=== PATIENT | female | born 1970 | race Two or more races ===

== ENCOUNTER 2017-08-23 07:46 | Emergency (ER) | payer MEDICAID, OTHER ==
[~2017-08-23] VITALS: Ht 170.2 cm; Wt 92.5 kg
[2017-08-23 08:45] LABS: Urine Bilirubin Negative (Negative); Urine Blood Negative /uL (Negative); Urine Color Yellow (Yellow); Urine Glucose Normal (Normal); Urine Ketone Negative (Negative); Urine Nitrite Negative (Negative); Urine RBC <1 /hpf (0 - 4); Urine Squamous Epithelial Cell FEW /hpf (<5); Urine Urobilinogen Normal (Negative); Urine pH 6.5 (5.0-8.0)
[2017-08-23 08:46] LABS: Basophils # (auto) 0 uL; Basophils % (auto) 0.5 % (0.0-2.0); Eosinophils # (auto) 0.2 uL; Hematocrit 44.9 % (36.0-46.0); Hemoglobin 15.4 g/dL (12.2-16.2); Lymphocytes # (auto) 1.7 uL; Lymphocytes % (auto) 38.5 % (10.0-50.0); Mean Corpuscular Hemoglobin 31.5 pg (28.0-32.0); Mean Corpuscular Hgb Conc. 34.3 g/dL (32.0-36.0); Mean Corpuscular Volume 91.6 fL (80.0-100.0); Mean Platelet Volume 9.3 fL (6.9-10.8); Monocytes # (auto) 0.4 uL; Monocytes % (auto) 8.9 % (0.0-12.0); Neutrophils # (auto) 2.1 uL; Neutrophils % (auto) 48.1 % (37.0-80.0); Nucleated Red Blood Cells % 0.2 %; Platelet Count (auto) 209 10^3/uL (140-450); Red Cell Distribution Width 13.1 % (11.8-14.3); White Blood Cell 4.3 10^3/uL (4.4-10.8)
[2017-08-23 09:11] LABS: BUN/Creatinine Ratio 20.6; Bilirubin, Total 0.4 mg/dL (0.2-1.0); Calcium 8.8 mg/dL (8.5-10.1); Total Protein 7.8 g/dL (6.4-8.2)
[2017-08-23 09:59] VITALS: BP 115/64
[2017-08-23] MEDS: KETOROLAC TROMETH 30 MG/ML 1ML VIAL IV ONE (12:10)
[2017-08-23] MEDS: METOCLOPRAMIDE HCL 5MG/ml INJ 2ml VIAL IV ONE (12:10)
[2017-08-23] MEDS: SODIUM CHLORIDE 0.9% 1,000 ML IV ONE (12:10)
== END 2017-08-23 12:42 | disposition home or self-care (01) ==
LOC: ER 07:46
DX: R07.89 Other chest pain (principal); N39.0 Urinary tract infection, site not specified; Z88.0 Allergy status to penicillin; Z30.2 Encounter for sterilization
CPT/HCPCS: 36415; 71020; 80053; 81001; 85025; 93005; 96374; 96375; 99285; J1885; J2765; J7030

== ENCOUNTER 2017-10-13 08:20 | Emergency (ER) | payer MEDICAID ==
[~2017-10-13] VITALS: Ht 170.2 cm; Wt 93.9 kg
[2017-10-13 10:12] VITALS: BP 121/71
== END 2017-10-13 10:44 | disposition home or self-care (01) ==
LOC: ER 08:20
DX: J45.909 Unspecified asthma, uncomplicated (principal)
CPT/HCPCS: 71046

== ENCOUNTER 2018-06-18 09:34 | Emergency (ER) | payer MEDICAID, OTHER ==
[~2018-06-18] VITALS: Ht 170.2 cm; Wt 87.5 kg
[2018-06-18 09:41] VITALS: BP 119/44
== END 2018-06-18 10:21 | disposition home or self-care (01) ==
LOC: ER 09:34
DX: R51 Headache (principal); J45.909 Unspecified asthma, uncomplicated; M19.90 Unspecified osteoarthritis, unspecified site; Z98.51 Tubal ligation status

== ENCOUNTER 2019-05-01 13:49 | Emergency (ER) | payer MEDICAID ==
[~2019-05-01] VITALS: Ht 170.2 cm; Wt 90.7 kg
[2019-05-01 14:30] VITALS: BP 123/58
[2019-05-01] MEDS ORDERED: KETOROLAC TROMETH 60MG/2ML VIAL IM ONE (15:30)
== END 2019-05-01 15:55 | disposition home or self-care (01) ==
LOC: ER 13:49
DX: S16.1XXA Strain of muscle, fascia and tendon at neck level, initial encounter (principal); S46.912A Strain of unspecified muscle, fascia and tendon at shoulder and upper arm level, left arm, initial encounter; J45.909 Unspecified asthma, uncomplicated; F17.210 Nicotine dependence, cigarettes, uncomplicated; Z88.0 Allergy status to penicillin; X50.1XXA Overexertion from prolonged static or awkward postures, initial encounter; Y93.89 Activity, other specified; Y92.89 Other specified places as the place of occurrence of the external cause; Y99.8 Other external cause status
CPT/HCPCS: 96372; 99283; J1885

== ENCOUNTER 2019-07-22 09:51 | Emergency (ER) | payer MEDICAID ==
[~2019-07-22] VITALS: Ht 170.2 cm; Wt 93.0 kg
[2019-07-22 10:47] LABS: Urine Bacteria NONE SEEN /hpf (None Seen); Urine Blood Negative /uL (Negative); Urine Mucus FEW (None Seen); Urine Specific Gravity 1.025 (1.001-1.035); Urine WBC 8 /hpf (0 - 5)
[2019-07-22 11:04] LABS: Basophils # (auto) 0 uL; Basophils % (auto) 0.9 % (0.0-2.0); Eosinophils # (auto) 0.1 uL; Eosinophils % (auto) 3.5 % (0.0-7.0); Hematocrit 45.2 % (36.0-46.0); Hemoglobin 15.3 g/dL (12.2-16.2); Lymphocytes # (auto) 1.4 uL; Lymphocytes % (auto) 36.5 % (10.0-50.0); Mean Corpuscular Hemoglobin 31.6 pg (28.0-32.0); Mean Corpuscular Hgb Conc. 33.9 g/dL (32.0-36.0); Mean Corpuscular Volume 93.5 fL (80.0-100.0); Monocytes # (auto) 0.4 uL; Monocytes % (auto) 10.5 % (0.0-12.0); Neutrophils # (auto) 1.9 uL; Neutrophils % (auto) 48.6 % (37.0-80.0); Nucleated Red Blood Cells % 0.2 %; Platelet Count (auto) 197 10^3/uL (140-450); Red Blood Cells 4.83 10^6/uL (4.0-5.20); Red Cell Distribution Width 13.5 % (11.8-14.3); White Blood Cell 3.9 10^3/uL (4.4-10.8)
[2019-07-22 11:13] LABS: Albumin 3.9 g/dL (3.4-5.0); Calcium 8.6 mg/dL (8.5-10.1); Potassium 3.9 mmol/L (3.5-5.1)
[2019-07-22 11:19] LABS: BUN/Creatinine Ratio 30.9; Bilirubin, Total 0.5 mg/dL (0.2-1.0); Total Protein 7.5 g/dL (6.4-8.2)
[2019-07-22] MEDS ORDERED: SODIUM CHLORIDE 0.9% 1,000 ML IV ONE (11:45)
[2019-07-22] MEDS ORDERED: MORPHINE SULFATE 4 MG/ML SYR/VIAL IV ONE (11:45)
[2019-07-22] MEDS ORDERED: ONDANSETRON HCL 4 MG/2 ML VIAL IV ONE (11:45)
[2019-07-22 13:46] VITALS: BP 105/47
[2019-07-22] MEDS ORDERED: LEVOFLOXACIN 500 MG TAB PO ONE (14:15)
== END 2019-07-22 14:28 | disposition home or self-care (01) ==
LOC: ER 09:54
DX: N20.0 Calculus of kidney (principal); N39.0 Urinary tract infection, site not specified; M79.10 Myalgia, unspecified site; M54.9 Dorsalgia, unspecified; J45.909 Unspecified asthma, uncomplicated; F17.210 Nicotine dependence, cigarettes, uncomplicated; Z88.0 Allergy status to penicillin
CPT/HCPCS: 36415; 74176; 80053; 81001; 85025; 93005; 96374; 96375; 99284; J2270; J2405

== ENCOUNTER 2019-10-12 11:25 | Emergency (ER) | payer MEDICAID ==
[~2019-10-12] VITALS: Ht 170.2 cm; Wt 90.7 kg
[2019-10-12 11:40] VITALS: BP 102/64
== END 2019-10-12 13:16 | disposition home or self-care (01) ==
LOC: ER 11:25
DX: T78.40XA Allergy, unspecified, initial encounter (principal); L30.9 Dermatitis, unspecified; M19.90 Unspecified osteoarthritis, unspecified site; J45.909 Unspecified asthma, uncomplicated; Z88.0 Allergy status to penicillin; X58.XXXA Exposure to other specified factors, initial encounter

== ENCOUNTER 2020-07-30 19:09 | Emergency (ER) | payer MEDICAID ==
[~2020-07-30] VITALS: Ht 170.2 cm; Wt 103.9 kg
[2020-07-30] MEDS ORDERED: ASPirin 81 mg TAB PO ONE (19:30)
[2020-07-30 19:31] VITALS: BP 137/98
[2020-07-30 20:45] LABS: Basophils # (auto) 0 10 ^3/uL (0-0.2); Basophils % (auto) 0.5 % (0.0-2.0); Eosinophils # (auto) 0 10 ^3/uL (0-0.8); Hematocrit 43.7 % (36.0-46.0); Hemoglobin 14.9 g/dL (12.2-16.2); Lymphocytes # (auto) 1.1 10 ^3/uL (0.4-5.4); Lymphocytes % (auto) 22.6 % (10.0-50.0); Mean Corpuscular Hemoglobin 31.5 pg (28.0-32.0); Mean Corpuscular Hgb Conc. 34.1 g/dL (32.0-36.0); Mean Corpuscular Volume 92.4 fL (80.0-100.0); Monocytes # (auto) 0.2 10 ^3/uL (0-1.3); Monocytes % (auto) 4.8 % (0.0-12.0); Neutrophils # (auto) 3.6 10 ^3/uL (1.6-8.6); Neutrophils % (auto) 72.1 % (37.0-80.0); Nucleated Red Blood Cells % 0.1 %; Platelet Count (auto) 235 10^3/uL (140-450); Red Blood Cells 4.73 10^6/uL (4.0-5.20); Red Cell Distribution Width 13.4 % (11.8-14.3)
[2020-07-30 20:53] LABS: Alanine Aminotransferase 72 U/L (13-56); Albumin 4.1 g/dL (3.4-5.0); Anion Gap 7 (5-15); Aspartate Aminotransferase 35 U/L (15-37); Blood Urea Nitrogen 14 mg/dL (7-18); Carbon Dioxide 24 mmol/L (21-32); Chloride 107 mmol/L (98-107); GFR African American 113 mL/min; GFR Non-African American 93 mL/min; Glucose 117 mg/dL (74-106); Sodium 138 mmol/L (136-145)
[2020-07-30 20:57] LABS: Alkaline Phosphatase 101 U/L (45-117); Bilirubin, Total 0.3 mg/dL (0.2-1.0); Total Protein 8.2 g/dL (6.4-8.2)
== END 2020-07-30 21:23 | disposition home or self-care (01) ==
LOC: ER 19:22
DX: R07.89 Other chest pain (principal); Z87.891 Personal history of nicotine dependence; Z88.0 Allergy status to penicillin
CPT/HCPCS: 36415; 71046; 80053; 84484; 85025; 85379; 93005

== ENCOUNTER 2020-10-05 06:29 | Emergency (ER) | payer MEDICAID ==
[~2020-10-05] VITALS: Ht 177.8 cm; Wt 99.8 kg
[2020-10-05 06:34] VITALS: BP 140/80
[2020-10-05 07:22] LABS: Basophils # (auto) 0 10 ^3/uL (0-0.2); Basophils % (auto) 0.3 % (0.0-2.0); Eosinophils # (auto) 0.1 10 ^3/uL (0-0.8); Eosinophils % (auto) 1.6 % (0.0-7.0); Hematocrit 45.1 % (36.0-46.0); Lymphocytes # (auto) 1.7 10 ^3/uL (0.4-5.4); Lymphocytes % (auto) 33.7 % (10.0-50.0); Mean Corpuscular Hemoglobin 30.7 pg (28.0-32.0); Mean Corpuscular Hgb Conc. 33.3 g/dL (32.0-36.0); Mean Corpuscular Volume 91.9 fL (80.0-100.0); Monocytes # (auto) 0.4 10 ^3/uL (0-1.3); Monocytes % (auto) 7.8 % (0.0-12.0); Neutrophils # (auto) 2.9 10 ^3/uL (1.6-8.6); Neutrophils % (auto) 56.6 % (37.0-80.0); Nucleated Red Blood Cells % 0.1 %; Red Blood Cells 4.91 10^6/uL (4.0-5.20); Red Cell Distribution Width 13.8 % (11.8-14.3); White Blood Cell 5.2 10^3/uL (4.4-10.8)
[2020-10-05 07:33] LABS: Albumin 4.4 g/dL (3.4-5.0); Amylase 32 U/L (25-115); Anion Gap 9 (5-15); BUN/Creatinine Ratio 17.6; Blood Urea Nitrogen 12 mg/dL (7-18); Carbon Dioxide 23 mmol/L (21-32); Chloride 107 mmol/L (98-107); GFR African American 117 mL/min; GFR Non-African American 97 mL/min; Glucose 116 mg/dL (74-106); Lipase 168 U/L (73-393); Potassium 3.8 mmol/L (3.5-5.1); Sodium 139 mmol/L (136-145)
[2020-10-05 07:38] LABS: Alanine Aminotransferase 59 U/L (13-56); Alkaline Phosphatase 84 U/L (45-117); Aspartate Aminotransferase 33 U/L (15-37); Bilirubin, Total 0.6 mg/dL (0.2-1.0)
[2020-10-05 07:49] LABS: INR 0.98 (0.9-1.15); Partial Thromboplastin Time 24.8 sec (23.0-31.2)
[2020-10-05] MEDS ORDERED: SODIUM CHLORIDE 0.9% 1,000 ML IV ONE (08:00)
[2020-10-05 10:09] LABS: Urine Bacteria NONE SEEN /hpf (None Seen); Urine Blood Negative /uL (Negative); Urine Specific Gravity 1.024 (1.001-1.035); Urine WBC 3 /hpf (0 - 5)
== END 2020-10-05 13:50 | disposition home or self-care (01) ==
LOC: EDBD 06:29 → ER 06:29
DX: R10.31 Right lower quadrant pain (principal); J45.909 Unspecified asthma, uncomplicated; Z88.0 Allergy status to penicillin; Z98.890 Other specified postprocedural states
CPT/HCPCS: 36415; 71045; 74176; 80053; 81001; 82150; 83690; 83735; 84484; 84702; 85025; 85610; 85730; 93005; 96360; 99285; J7030

== ENCOUNTER 2023-10-01 04:53 | Emergency (ER) | payer MEDICAID ==
[~2023-10-01] VITALS: Ht 170.2 cm; Wt 100.0 kg
[2023-10-01 05:05] VITALS: BP 121/51; PULSE 68; RESP 18; TEMP 97.6; O2SAT 93
[2023-10-01] MEDS ORDERED: HYDR-4902 PO (05:26)
[2023-10-01] MEDS ORDERED: GABA600T PO (05:26)
[2023-10-01] MEDS ORDERED: DexAMETHasone SOD PHOS 10MG/1ML VIAL INJ IM ONE (05:30)
[2023-10-01] MEDS ORDERED: MORPHINE SULFATE INJ 2 MG/ml SYRG IM ONE (05:30)
[2023-10-01] MEDS ORDERED: KETOROLAC TROMETH 60MG/2ML VIAL IM ONE (05:45)
[2023-10-01] MEDS ORDERED: PERCOT PO (18:40)
== END 2023-10-01 05:51 | disposition home or self-care (01) ==
LOC: ER 04:53
DX: M51.36 Other intervertebral disc degeneration, lumbar region (principal); I10 Essential (primary) hypertension; M62.838 Other muscle spasm; J45.909 Unspecified asthma, uncomplicated; Z98.51 Tubal ligation status; Z88.0 Allergy status to penicillin; Z87.891 Personal history of nicotine dependence
CPT/HCPCS: 96372; 99284; J1100; J1885

== ENCOUNTER 2025-04-04 06:49 | Inpatient (IN) | payer MEDICAID ==
[~2025-04-04] VITALS: Ht 160 cm; Wt 95.0 kg
[~2025-04-04 06:49] MED LIST: GABA600T PO; PERCOT PO
--- NOTE | 2025-04-04 07:31 | ED.PDOC ---
History of Present Illness HPI Comments Patient is a 55-year-old female with a medical history of hypothyroidism, anxiety, depression, obesity presented to the ED with a chief complaint intractable nausea vomiting with the past 3 days. Patient reported 3 days ago she started to have chills, intractable nausea and vomiting without being able to keep anything down, diarrhea 5 to 6 times a day greenish in color without any blood in stool or vomitus. Patient denied recent sick contacts, recent travel. Patient started to use Zepbound in January and about a week ago increased her dose from 2.5 to 5. Chief Complaint: Intractable nausea/vomiting/diarrhea Time Seen by MD: 06:52 Primary Care Provider: LESLEY Reviewed Notes: Nurses Notes, Medications, Allergies Allergies: Coded Allergies: Penicillins (Verified Allergy, Unknown, 07/22/19) Home Meds Active Scripts Oxycodone W/ Acetaminophen (Percocet 5/325MG) 1 Tab Tb, 1 TAB PO Q6HPRN PRN, #6 TAB NEEDED FOR SEVERE PAIN Prov:GAMEZ,NORALDA Q UPSET OPERATOR 10/01/23 Gabapentin (Neurontin) 600 Mg Tab, 1 TAB PO BID for 10 Days, #20 TAB 3 Refills Prov:GAMEZ,NORALDA Q UPSET OPERATOR 10/01/23 Information Source: Patient Past Medical History PAST MEDICAL HISTORY: Anxiety, Arthritis, Asthma, Depression, Thyroid (Hypothyroidism) Surgical History: BTL MAIL SORTING SUPERVISOR History: No Pertinent MAIL SORTING SUPERVISOR History Family History Family History: Unobtainable Social History Smoker: Non-Smoker, Quit Less Than 1 Year Alcohol: Other Drugs: Denies Drug Use Lives In: Home Constitutional: reports: chills, fatigue, malaise, weakness EENTM: denies: blurred vision, double vision, ear bleeding, ear discharge, ear drainage, ear pain, ear ringing, eye pain, eye redness, hearing loss, mouth pain, mouth swelling, nasal discharge, nose bleeding, nose congestion, nose pain, photophobia, tearing, throat pain, throat swelling, voice changes, others Respiratory: denies: cough, hemoptysis, orthopnea, SOB at rest, shortness of breath, SOB with excertion, stridor, wheezing, others Cardiovascular: denies: chest pain, dizzy spells, diaphoresis, Dyspnea on exertion, edema, irregular heart beat, left arm pain, lightheadedness, palpitations, PND, syncope, others Gastrointestinal: reports: abdominal pain, diarrhea, nausea, poor appetite, vomiting Genitourinary: denies: abnormal vagina bleeding, burning, dyspareunia, dysuria, flank pain, frequency, hematuria, incontinence, pain, , vagina discharge, urgency, others Neurological: denies: dizziness, fainting, headache, left sided numbness, left sided weakness, numbness, paresthesia, pre-existing deficit, right sided numbness, right sided weakness, seizure, speech problems, tingling, tremors, weakness, others Musculoskeletal: denies: back pain, gout, joint pain, joint swelling, muscle pain, muscle stiffness, neck pain, others Integumetry: denies: bruises, change in color, change in hair/nails, dryness, laceration, lesions, lumps, rash, wounds, others Allergic/Immunocompromised: denies: Difficulty Healing, Frequent Infections, Hives, Itching, others Hematologic/Lymphatic: denies: anemia, blood clots, easy bleeding, easy bruising, swollen glands, others Endocrine: denies: excessive hunger, excessive sweating, excessive thirst, excessive urination, flushing, intolerance to cold, intolerance to heat, unexplained weight gain, unexplained weight loss, others Psychiatric: denies: anxiety, bipolar disorder, depression, hopeless, panic disorder, schizophrenia, sleepless, suicidal, others Physical Exam General Appearance: Moderate Distress, Obese HEENT: PERRL/EOMI, Pharynx Normal Neck: Full Range of Motion, Non-Tender, Normal Inspection Respiratory: No Accessory Muscle Use, No Respiratory Distress, Normal Breath Sounds Cardiovascular: No Edema, No JVD, No Murmur, Tachycardia Breast Exam: Deferred Gastrointestinal: Diffuse (Abdominal pain), LLQ, No Organomegaly, Normal Bowel Sounds, Tenderness Genitalia: Deferred Pelvic: Deferred Rectal: Deferred Extremities: No calf tenderness, Normal inspection, Normal range of motion, No pedal edema Neurologic: Alert, potato seed cutter II-XII nml as Tested, No Motor Deficits, No Sensory Deficits Cerebellar Function: Normal Reflexes: NOT DONE Skin: Dry, Normal Color, Warm Peripheral Pulses: 2+ dorsalis pedis (R), 2+ dorsalis pedis (L), 2+ Radial (R), 2+ Radial (L) Lymphatic: None Was a procedure done? Was a procedure done?: No Differential Dx Considerations may include: Gastroenteritis, colitis, diverticulitis, food poisoning, gastritis, UTI X-Ray, Labs, Meds, VS Vital Signs Date Time Temp Pulse Resp B/P (MAP) Pulse Ox O2 Delivery O2 Flow Rate FiO2 04/04/25 09:30 97.7 115 16 101/51 (68) 96 97.7 04/04/25 07:42 97.6 128 18 105/69 (81) 96 97.6 04/04/25 07:42 128 18 96 Room Air 04/04/25 07:13 97.8 136 18 99/76 (84) 96 97.8 Lab Test 04/04/25 07:21 Range/Units White Blood Count 6.6 4.4-10.8 10^3/uL Red Blood Count 6.19 H 4.0-5.20 10^6/uL Hemoglobin 19.3 H 12.2-16.2 g/dL Hematocrit 55.8 H 36.0-46.0 % Mean Corpuscular Volume 90.1 80.0-100.0 fL Mean Corpuscular Hemoglobin 31.1 28.0-32.0 pg Mean Corpuscular Hemoglobin Concent 34.5 32.0-36.0 g/dL Red Cell Distribution Width 13.5 11.8-14.3 % Platelet Count 245 140-450 10^3/uL Mean Platelet Volume 9.5 6.9-10.8 fL Neutrophils (%) (Auto) 70.1 37.0-80.0 % Lymphocytes (%) (Auto) 19.9 10.0-50.0 % Monocytes (%) (Auto) 7.8 0.0-12.0 % Eosinophils (%) (Auto) 2.1 0.0-7.0 % Basophils (%) (Auto) 0.1 0.0-2.0 % Neutrophils # (Auto) 4.6 1.6-8.6 10 ^3/uL Lymphocytes # (Auto) 1.3 0.4-5.4 10 ^3/uL Monocytes # (Auto) 0.5 0-1.3 10 ^3/uL Eosinophils # (Auto) 0.1 0-0.8 10 ^3/uL Basophils # (Auto) 0 0-0.2 10 ^3/uL Nucleated Red Blood Cells 0.5 % Sodium Level 140 136-145 mmol/L Potassium Level 3.3 L 3.5-5.1 mmol/L Chloride Level 103 98-107 mmol/L Carbon Dioxide Level 22 20-31 mmol/L Anion Gap 15 5-15 Blood Urea Nitrogen 25 H 9-23 mg/dL Creatinine 2.19 H 0.550-1.02 mg/dL Glomerular Filtration Rate Calc 26 >90 mL/min BUN/Creatinine Ratio 11.4 10.0-20.0 Serum Glucose 130 H 74-106 mg/dL Lactic Acid Level 1.5 0.4-2.0 mmol/L Calcium Level 10.9 H 8.7-10.4 mg/dL Total Bilirubin 0.6 0.2-1.0 mg/dL Aspartate Amino Transferase (AST) 35 13-40 U/L Alanine Aminotransferase (ALT) 37 7-40 U/L Alkaline Phosphatase 97 46-116 U/L Total Protein 9.1 H 5.7-8.2 g/dL Albumin 5.8 H 3.2-4.8 g/dL Current Medications Medications (Trade) Dose Ordered Sig/Jaylin Route Start Time Stop Time Status Last Admin Sodium Chloride 1,000 ml @ 1,000 mls/hr Q1H ONCE IV 04/04/25 07:15 04/04/25 08:14 DC 04/04/25 07:57 Sodium Chloride 1,000 ml @ 1,000 mls/hr Q1H ONCE IV 04/04/25 09:45 04/04/25 10:44 04/04/25 09:51 Patient 55-year-old female came to the ER with a intractable nausea vomiting and diarrhea associated with diffuse abdominal pain for the last 3 days. Patient was tachycardic and had a low blood pressure with a SBP less than 100 mmHg. IV fluids were initiated and labs including CBC, CMP, lactic acid, blood cultures were drawn. Patient had elevated serum creatinine, hemoconcentration with elevated hemoglobin and hematocrit, lactic acid levels were within normal limits. Patient continued to be tachycardic and was given more IV fluids and stool cultures, stool for C diff was ordered and patient was given IV antibiotics. CT abdomen pelvis without IV contrast showed gallbladder sludge and no other acute abdominal or pelvic finding. Patient will need further inpatient management as currently she is not able to tolerate p.o. and she agrees with the plan. Time of 1ST Reevaluation: 09:31 Reevaluation 1ST: Improved Patient Education/Counseling: Diagnosis, Treatment Family Education/Counseling: No Family Present SEPSIS Sepsis Screen Physician Orders Urinalysis (04/04/25 07:03) Ct Ab Pel Wo Con-No Oral Or Iv (04/04/25 07:03) Heplock Iv (04/04/25 ) Blood Culture (04/04/25 07:03) Drug Screen (04/04/25 07:03) Sodium Chloride 0.9% (04/04/25 09:45) Stool Wbc (04/04/25 09:42) Clostridium Difficile Toxin (04/04/25 09:42) Stool Bacterial Culture (04/04/25 09:42) Ceftriaxone 1gm/50ml D5w (Rocephin) (04/04/25 09:45) Metronidazole 500mg/100ml (Flagyl 500mg/ (04/04/25 09:45) Potassium Chl Andrey Kcl (04/04/25 10:00) Vital Signs Date Time Temp Pulse Resp B/P (MAP) Pulse Ox O2 Delivery O2 Flow Rate FiO2 04/04/25 09:30 97.7 115 16 101/51 (68) 96 97.7 04/04/25 07:42 97.6 128 18 105/69 (81) 96 97.6 04/04/25 07:42 128 18 96 Room Air 04/04/25 07:13 97.8 136 18 99/76 (84) 96 97.8 Laboratory Tests Test 04/04/25 07:21 Lactic Acid Level 1.5 mmol/L (0.4-2.0) White Blood Count 6.6 10^3/uL (4.4-10.8) Medications Medications Dose Ordered Sig/Jaylin Route Start Time Stop Time Status Last Admin Dose Admin Sodium Chloride 1,000 ml @ 1,000 mls/hr Q1H ONCE IV 04/04/25 07:15 04/04/25 08:14 DC 04/04/25 07:57 Sodium Chloride 1,000 ml @ 1,000 mls/hr Q1H ONCE IV 04/04/25 09:45 04/04/25 10:44 04/04/25 09:51 Departure 1 Departure Time of Disposition: 10:08 Impression: Primary Impression: Gastroenteritis Additional Impression: Acute kidney injury Disposition: 09 ADMITTED INPATIENT Condition: Stable Critical Care Note Critical Care Time?: No Stability Stability form required: No Heart Score Heart Score: Heart Score Response (Comments) Value History N/A 0 EKG N/A 0 Age N/A 0 Risk Factors N/A 0 Troponin N/A 0 Total 0 BRIANA NEWBERRY RESIDENT Apr 04, 2025 07:31
[2025-04-04 07:56] LABS: Hematocrit 55.8 % (36.0-46.0); Hemoglobin 19.3 g/dL (12.2-16.2); Mean Corpuscular Hemoglobin 31.1 pg (28.0-32.0); Mean Corpuscular Volume 90.1 fL (80.0-100.0); Nucleated Red Blood Cells % 0.5 %
[2025-04-04] MEDS: SODIUM CHLORIDE 0.9% 1,000 ML IV ONE ×3 (07:57→11:57)
--- NOTE | 2025-04-04 08:03 | DVH ---
Exam: CT CT AB PEL WO CON-NO ORAL OR IV History: intractable N/V, abd pain Comparison Study: CT ABD PELVIS WO CONTRAST on DOS: 10/05/20 TECHNIQUE: Multidetector CT of the abdomen was performed from lung bases to pubic symphysis. Imaging was performed without IV contrast. Axial, coronal and sagittal multiplanar reformats were obtained fr om the axial data set by the technologist. Radiation Dose Information: CT Dose: CTDI volume is 23.03 mGy. Dose-length product is 1228.99 mGy*cm FINDINGS: Evaluation of solid organs is limited due to lack of intravenous contrast use. Findings: Lung Bases: No acute or significant lung base finding. Normal heart size. No pleural or pericardial effusion. Liver: Hepatic steatosis Gallbladder and Biliary Tree: Gallbladder sludge. Spleen: Unremarkable Pancreas: The pancreas is grossly normal in appearance. Adrenal Glands: Unremarkable Kidneys: Kidneys are grossly normal without calculi or hydronephrosis. Bladder: Grossly unremarkable for degree of distention. Bowel: The stomach is grossly normal in appearance. Small bowel and colon are normal in caliber and d istribution. Appendix is unremarkable. Ascites: Absent Lymphadenopathy: No mesenteric, retroperitoneal or periportal lymphadenopathy. Abdominal Wall and Mesentery: Unremarkable. Vasculature: The visualized abdominal aorta is normal in size and caliber. Evaluation of abdominal a nd pelvic vessels is limited due to lack of intravenous contrast. Pelvic Organs: Unremarkable Musculoskeletal: No aggressive focal bony lesions, acute fractures or dislocation. Soft tissues: Unremarkable IMPRESSION: No acute abdominal or pelvic finding. Gallbladder sludge. Radiation optimization: All CT scans at this facility use at least one of these dose optimization lula hniques: automated exposure control mA and/or kV adjustment per patient size (includes targeted exam s where dose is matched to clinical indication) or iterative reconstruction.
[2025-04-04 08:10] LABS: Alanine Aminotransferase 37 U/L (7-40); Alkaline Phosphatase 97 U/L (46-116); Anion Gap 15 (5-15); BUN/Creatinine Ratio 11.4 (10.0-20.0); Bilirubin, Total 0.6 mg/dL (0.2-1.0); Carbon Dioxide 22 mmol/L (20-31); Chloride 103 mmol/L (98-107); Sodium 140 mmol/L (136-145)
[2025-04-04 08:11] LABS: Blood Urea Nitrogen 25 mg/dL (9-23); Calcium 10.9 mg/dL (8.7-10.4); Glucose 130 mg/dL (74-106); Potassium 3.3 mmol/L (3.5-5.1); Total Protein 9.1 g/dL (5.7-8.2)
[2025-04-04 08:23] LABS: Albumin 5.8 g/dL (3.2-4.8)
[2025-04-04] MEDS ORDERED: POTASSIUM CHLORIDE 20 MEQ, LIDOCAINE 1% (LOCAL ANESTH.) 2 ML in SODIUM CHL 0.9% 100 ML IV ONE (10:00)
[2025-04-04] MEDS: POTASSIUM EFFERVESENT TAB 25 MEQ PO ONE ×2 (10:59→11:51)
[2025-04-04] MEDS ORDERED: ACETAMINOPHEN 325 MG TAB PO PRN (11:15)
[2025-04-04] MEDS ORDERED: ONDANSETRON HCL 4 MG/2 ML VIAL IV PRN (11:15)
[2025-04-04] MEDS ORDERED: DOCUSATE SOD 100 MG CAP PO PRN (11:15)
[2025-04-04] MEDS ORDERED: LEVO-177 PO (11:16)
[2025-04-04] MEDS ORDERED: BUSP10TA31 PO (11:16)
[2025-04-04] MEDS ORDERED: CHOL50007 PO (11:16)
[2025-04-04] MEDS ORDERED: TRAM50TA2 PO (11:16)
[2025-04-04] MEDS ORDERED: CYCL-611 PO (11:16)
[2025-04-04] MEDS ORDERED: METOCLOPRAMIDE HCL 5MG/ml INJ 2ml VIAL IV PRN (11:30)
[2025-04-04] MEDS ORDERED: CYCLOBENZAPRINE HCL 10 MG TAB PO PRN (11:30)
--- NOTE | 2025-04-04 11:38 | DVHHP2 ---
History of Present Illness Reason for Visit: Abdominal pain History of Present Illness Anna Wilson is a 55-year-old female with past medial history of anxiety, depression, obesity, and hypothyroidism, who came to the hospital for abdominal pain. Patient states she has been experiencing abdominal pain with associated nausea and vomiting for 3 days. Patient also states that she has been taking Zepbound for 3 months. Her dose was recently increased, and she has taken 2 doses since the increase. Psych: Anxiety, Depression Endocrine: Hypothyroidism Past Surgical History: Tubal Ligation Smoke: <1 pack per day (vape) ALCOHOL: none Drugs: None Lives: with Family Domestic Violence: Neg Review of Systems Constitutional: No: Fever, Chills, Sweats, Weakness, Malaise, Other Eyes: No: Pain, Vision change, Conjunctivae inflammation, Eyelid inflammation, Other, Redness ENT: No: Ear pain, Ear discharge, Nose pain, Nose discharge, Nose congestion, Mouth pain, Mouth swelling, Throat pain, Throat swelling, Other Respiratory: No: Cough, Dry, Shortness of breath, SOB with excertion, Wheezing, Hemoptysis, Pleuritic Pain, Sputum, Wheezing, Other Cardiovascular: No: Chest Pain, Palpitations, Orthopnea, Paroxysmal Noc. Dyspnea, Edema, Lt Headedness, Other Gastrointestinal: Nausea, Vomiting, Abdominal Pain; No: Diarrhea, Constipation, Melena, Hematochezia, Other Genitourinary: No Dysuria, No Frequency, No Incontinence, No Hematuria, No Retention, No Other Musculoskeletal: No: other, neck pain, shoulder pain, arm pain, back pain, hand pain, leg pain, foot pain Skin: No: Rash, Lesions, Jaundice, Bruising, Other Neurological: No: Weakness, Numbness, Incoordination, Change in speech, Confusion, Seizures, Other Allergies: Coded Allergies: Penicillins (Verified Allergy, Unknown, 07/22/19) Medications Current Medications Medications Dose Ordered Sig/Jaylin Route Start Time Stop Time Status Last Admin Dose Admin Ondansetron HCl 4 mg Q4HP PRN IV 04/04/25 11:15 UNV Docusate Sodium 100 mg BIDPRN PRN PO 04/04/25 11:15 UNV Acetaminophen 650 mg Q6HP PRN PO 04/04/25 11:15 UNV Buspirone HCl 10 mg BID PO 04/04/25 22:00 UNV Cyclobenzaprine HCl 10 mg BIDPRN PRN PO 04/04/25 11:30 UNV Levothyroxine Sodium 88 mcg QAM PO 04/05/25 07:00 UNV Tramadol HCl 50 mg DAILYPRN PRN PO 04/04/25 11:30 UNV Patient Own Medication 1 cap DAILY PO 04/05/25 10:00 UNV Exam Vital Signs Vital Signs Date Time Temp Pulse Resp B/P (MAP) Pulse Ox O2 Delivery O2 Flow Rate FiO2 04/04/25 09:30 97.7 115 16 101/51 (68) 96 97.7 04/04/25 07:42 Room Air General Appearance: Alert, Oriented X3, Cooperative, mild distress HEENT: Atraumatic, PERRLA Respiratory: Clear to auscultation, Normal air movement Cardiovascular: Normal S1, Normal S2, Other (ST) Abdominal: Normal bowel sounds, Soft, Other Extremities: No clubbing, No cyanosis, No edema Skin: No rashes, No breakdown, No significant lesion Neuro: Normal gait, Normal speech, Strength at 5/5 X4 ext, Normal tone Psych/Mental Status: Mental status NL, Mood NL Labs/Xrays Labs Test 04/04/25 07:21 Range/Units White Blood Count 6.6 4.4-10.8 10^3/uL Red Blood Count 6.19 H 4.0-5.20 10^6/uL Hemoglobin 19.3 H 12.2-16.2 g/dL Hematocrit 55.8 H 36.0-46.0 % Mean Corpuscular Volume 90.1 80.0-100.0 fL Mean Corpuscular Hemoglobin 31.1 28.0-32.0 pg Mean Corpuscular Hemoglobin Concent 34.5 32.0-36.0 g/dL Red Cell Distribution Width 13.5 11.8-14.3 % Platelet Count 245 140-450 10^3/uL Mean Platelet Volume 9.5 6.9-10.8 fL Neutrophils (%) (Auto) 70.1 37.0-80.0 % Lymphocytes (%) (Auto) 19.9 10.0-50.0 % Monocytes (%) (Auto) 7.8 0.0-12.0 % Eosinophils (%) (Auto) 2.1 0.0-7.0 % Basophils (%) (Auto) 0.1 0.0-2.0 % Neutrophils # (Auto) 4.6 1.6-8.6 10 ^3/uL Lymphocytes # (Auto) 1.3 0.4-5.4 10 ^3/uL Monocytes # (Auto) 0.5 0-1.3 10 ^3/uL Eosinophils # (Auto) 0.1 0-0.8 10 ^3/uL Basophils # (Auto) 0 0-0.2 10 ^3/uL Nucleated Red Blood Cells 0.5 % Sodium Level 140 136-145 mmol/L Potassium Level 3.3 L 3.5-5.1 mmol/L Chloride Level 103 98-107 mmol/L Carbon Dioxide Level 22 20-31 mmol/L Anion Gap 15 5-15 Blood Urea Nitrogen 25 H 9-23 mg/dL Creatinine 2.19 H 0.550-1.02 mg/dL Glomerular Filtration Rate Calc 26 >90 mL/min BUN/Creatinine Ratio 11.4 10.0-20.0 Serum Glucose 130 H 74-106 mg/dL Lactic Acid Level 1.5 0.4-2.0 mmol/L Calcium Level 10.9 H 8.7-10.4 mg/dL Total Bilirubin 0.6 0.2-1.0 mg/dL Aspartate Amino Transferase (AST) 35 13-40 U/L Alanine Aminotransferase (ALT) 37 7-40 U/L Alkaline Phosphatase 97 46-116 U/L Total Protein 9.1 H 5.7-8.2 g/dL Albumin 5.8 H 3.2-4.8 g/dL Exam: CT CT AB PEL WO CON-NO ORAL OR IV FINDINGS: Evaluation of solid organs is limited due to lack of intravenous contrast use. Findings: Lung Bases: No acute or significant lung base finding. Normal heart size. No pleural or pericardial effusion. Liver: Hepatic steatosis Gallbladder and Biliary Tree: Gallbladder sludge. Spleen: Unremarkable Pancreas: The pancreas is grossly normal in appearance. Adrenal Glands: Unremarkable Kidneys: Kidneys are grossly normal without calculi or hydronephrosis. Bladder: Grossly unremarkable for degree of distention. Bowel: The stomach is grossly normal in appearance. Small bowel and colon are normal in caliber and distribution. Appendix is unremarkable. Ascites: Absent Lymphadenopathy: No mesenteric, retroperitoneal or periportal lymphadenopathy. Abdominal Wall and Mesentery: Unremarkable. Vasculature: The visualized abdominal aorta is normal in size and caliber. Evaluation of abdominal and pelvic vessels is limited due to lack of intravenous contrast. Pelvic Organs: Unremarkable Musculoskeletal: No aggressive focal bony lesions, acute fractures or dislocation. Soft tissues: Unremarkable IMPRESSION: No acute abdominal or pelvic finding. Gallbladder sludge. SEPSIS Sepsis Screen Date sepsis recognized/suspect: Apr 04, 2025 Time Sepsis recognized/suspect: 712 Recent Procedure: No On Antibiotic Therapy: No Respiratory Rate >20: No Heart Rate >90: Yes Temp<36 C (96.8 F) or >38.3 C: No SBP <90 or MAP <65 mmHG: No New Acute Mental Status Change: No Is the patient on CPAP, BIPAP,: No Physician Orders Urinalysis (04/04/25 07:03) Ct Ab Pel Wo Con-No Oral Or Iv (04/04/25 07:03) Heplock Iv (04/04/25 ) Blood Culture (04/04/25 07:03) Drug Screen (04/04/25 07:03) Stool Wbc (04/04/25 09:42) Clostridium Difficile Toxin (04/04/25 09:42) Stool Bacterial Culture (04/04/25 09:42) Ceftriaxone 1gm/50ml D5w (Rocephin) (04/04/25 09:45) Admit (04/04/25 11:13) Code Status (04/04/25 11:13) Ondansetron Hcl (Zofran) (04/04/25 11:15) Docusate Sodium Capsule (Colace Capsule) (04/04/25 11:15) Complete Blood Count (04/05/25 04:00) Comprehensive Metabolic Panel (04/05/25 04:00) Condition: Serious (04/04/25 11:13) Acetaminophen Tablet (Tylenol Tablet) (04/04/25 11:15) Clear Liq Diet (04/04/25 Lunch) Buspirone Hcl Tablet (Buspar Tablet) (04/04/25 22:00) Cyclobenzaprine Tablet (Flexeril Tablet) (04/04/25 11:30) Levothyroxine Tablet (Synthroid Tablet) (04/05/25 07:00) Tramadol Hcl (Ultram) (04/04/25 11:30) (Nf) Cholecalciferol (Vitamin D3) (04/05/25 10:00) Ceftriaxone Ivpb Rocephin (04/05/25 09:00) Metronidazole Ivpb Flagyl (04/04/25 14:00) Metoclopramide Injection (Reglan Injecti (04/04/25 11:30) NS (04/04/25 11:30) Vital Signs Date Time Temp Pulse Resp B/P (MAP) Pulse Ox O2 Delivery O2 Flow Rate FiO2 04/04/25 09:30 97.7 115 16 101/51 (68) 96 97.7 04/04/25 07:42 97.6 128 18 105/69 (81) 96 97.6 04/04/25 07:42 128 18 96 Room Air 04/04/25 07:13 97.8 136 18 99/76 (84) 96 97.8 Laboratory Tests Test 04/04/25 07:21 Lactic Acid Level 1.5 mmol/L (0.4-2.0) White Blood Count 6.6 10^3/uL (4.4-10.8) Medications Medications Dose Ordered Sig/Jaylin Route Start Time Stop Time Status Last Admin Dose Admin Potassium Bicarbonate 25 meq ONCE ONCE PO 04/04/25 10:30 04/04/25 10:31 DC 04/04/25 10:59 25 MEQ Sodium Chloride 1,000 ml @ 1,000 mls/hr Q1H ONCE IV 04/04/25 07:15 04/04/25 08:14 DC 04/04/25 07:57 1,000 MLS/HR Sodium Chloride 1,000 ml @ 1,000 mls/hr Q1H ONCE IV 04/04/25 09:45 04/04/25 10:44 DC 04/04/25 09:51 1,000 MLS/HR Assessment/Plan Assessment/Plan Assessment: Gastroenteritis, Acute kidney injury, Hypokalemia, Hyperglycemia, UTI, Anxiety, Depression, Hypothyroidism, Plan: Admit to Med-Surg, Clear liquid diet, advance as tolerated, IV antibiotics, IV hydration, Urine culture, Manage/Monitor electrolytes closely, A1c, Home medications reconciled, Plan discussed with: Patient My Orders Orders - JENNIFER PATEL LEVEL DESIGNER Procedure Category Date Status Time Admit ADMIT 04/04/25 Transmitted 11:13 Code Status CODE 04/04/25 Transmitted 11:13 Ondansetron Hcl PHA 04/04/25 Logged (Zofran) 11:15 Docusate Sodium PHA 04/04/25 Logged Capsule (Colace 11:15 Complete Blood Count LAB 04/05/25 Verified 04:00 Comprehensive LAB 04/05/25 Verified Metabolic Panel 04:00 Condition: Serious YEIMI 04/04/25 In Process 11:13 Acetaminophen Tablet PHA 04/04/25 Logged (Tylenol Tablet) 11:15 Clear Liq Diet DIET 04/04/25 Transmitted Lunch Buspirone Hcl Tablet PHA 04/04/25 Logged (Buspar Tablet) 22:00 Cyclobenzaprine PHA 04/04/25 Logged Tablet (Flexeril 11:30 Levothyroxine Tablet PHA 04/05/25 Logged (Synthroid Tablet) 07:00 Tramadol Hcl (Ultram) PHA 04/04/25 Logged 11:30 (Nf) Cholecalciferol PHA 04/05/25 Logged (Vitamin D3) 10:00 Ceftriaxone Ivpb PHA 04/05/25 Verified Rocephin 09:00 Metronidazole Ivpb PHA 04/04/25 Verified Flagyl 14:00 Metoclopramide PHA 04/04/25 Verified Injection (Reglan 11:30 NS PHA 04/04/25 Verified 11:30 Date of Service: Apr 04, 2025 Billing Provider: JENNIFER PATEL Common Visit Codes: [id number] INP/OBS CARE (MOD) JENNIFER PATEL Apr 04, 2025 11:38
[2025-04-04 11:45] LABS: Urine Protein, UAD 1+ (Negative)
[2025-04-04 11:54] LABS: Amphetamine Screen, Urine Neg (NEGATIVE); Barbiturate Scree,Urine Neg (NEGATIVE); Benzodiazephine Screen, Urine Neg (NEGATIVE); Cannabinoid Screen, Urine Neg (NEGATIVE); Cocaine Screen, Urine Neg (NEGATIVE); Opiate Scree,Urine Neg (NEGATIVE); Phencyclidine Screen, Urine Neg (NEGATIVE)
[2025-04-04] MEDS: cefTRIAXone 1GM/50ML D5W 50 ML IV ONE (12:40)
[2025-04-04 17:05] VITALS: BP 95/53; PULSE 85; RESP 22; TEMP 98.3; O2SAT 93
[2025-04-04 17:17] VITALS: BP 111/76; PULSE 92; RESP 19; RESP 20; TEMP 98; O2SAT 94
[2025-04-04 18:53] LABS: Potassium 3.2 mmol/L (3.5-5.1)
[2025-04-04 18:59] LABS: Magnesium 2.0 mg/dL (1.6-2.6)
[2025-04-04 20:00] VITALS: RESP 16
[2025-04-04 21:00] VITALS: BP 99/64; PULSE 76; RESP 17; TEMP 98; O2SAT 95
[2025-04-05 01:00] VITALS: BP 100/63; PULSE 77; RESP 17; TEMP 98; O2SAT 95
[2025-04-05 05:00] VITALS: BP 97/56; PULSE 79; RESP 17; TEMP 98.3; O2SAT 93
[2025-04-05] MEDS: LEVOTHYROXINE SODIUM 88 MCG TAB PO SCH (06:02)
[2025-04-05 07:50] LABS: Hematocrit 43.7 % (36.0-46.0); Hemoglobin 15.0 g/dL (12.2-16.2); Mean Corpuscular Hemoglobin 30.8 pg (28.0-32.0); Mean Corpuscular Volume 89.9 fL (80.0-100.0)
[2025-04-05 07:57] LABS: Alanine Aminotransferase 37 U/L (7-40); Albumin 4.3 g/dL (3.2-4.8); Alkaline Phosphatase 70 U/L (46-116); Anion Gap 10 (5-15); BUN/Creatinine Ratio 14.5 (10.0-20.0); Bilirubin, Total 0.5 mg/dL (0.2-1.0); Blood Urea Nitrogen 12 mg/dL (9-23); Calcium 9.2 mg/dL (8.7-10.4); Carbon Dioxide 23 mmol/L (20-31); Glucose 96 mg/dL (74-106); Magnesium 2.0 mg/dL (1.6-2.6); Sodium 143 mmol/L (136-145); Total Protein 6.5 g/dL (5.7-8.2)
[2025-04-05 08:00] VITALS: PULSE 67; RESP 18; O2SAT 97
[2025-04-05 08:07] LABS: Chloride 110 mmol/L (98-107); Potassium 3.3 mmol/L (3.5-5.1)
[2025-04-05 08:14] LABS: Nucleated Red Blood Cells % 0.3 %
[2025-04-05 08:48] VITALS: BP 89/55; PULSE 67; RESP 18; TEMP 97.5; O2SAT 97
[2025-04-05] MEDS ORDERED: CHOLECALCIFEROL (VITD3) 1,000UNIT=25mCg TAB PO SCH (10:00)
[2025-04-05] MEDS: cefTRIAXone 1GM/50ML D5W 50 ML IV SCH (10:26)
[2025-04-05 13:00] VITALS: BP 97/59; PULSE 69; RESP 18; TEMP 98.1; O2SAT 97
[2025-04-05 16:28] VITALS: BP 103/71; PULSE 66; RESP 18; TEMP 97.9; O2SAT 96
--- NOTE | 2025-04-05 17:47 | DVHDS2 ---
Discharge Summary Date of Admission Apr 04, 2025 at 11:13 Date of Discharge: Apr 05, 2025 Labs/Diagnostic Data: Laboratory Results Test 04/05/25 06:35 04/04/25 10:38 04/04/25 07:21 04/04/25 07:03 White Blood Count 4.2 10^3/uL (4.4-10.8) Red Blood Count 4.87 10^6/uL (4.0-5.20) Hemoglobin 15.0 g/dL (12.2-16.2) Hematocrit 43.7 % (36.0-46.0) Mean Corpuscular Volume 89.9 fL (80.0-100.0) Mean Corpuscular Hemoglobin 30.8 pg (28.0-32.0) Mean Corpuscular Hemoglobin Concent 34.3 g/dL (32.0-36.0) Red Cell Distribution Width 13.1 % (11.8-14.3) Platelet Count 193 10^3/uL (140-450) Mean Platelet Volume 9.6 fL (6.9-10.8) Neutrophils (%) (Auto) 43.3 % (37.0-80.0) Lymphocytes (%) (Auto) 35.6 % (10.0-50.0) Monocytes (%) (Auto) 14.2 % (0.0-12.0) Eosinophils (%) (Auto) 6.6 % (0.0-7.0) Basophils (%) (Auto) 0.3 % (0.0-2.0) Neutrophils # (Auto) 1.8 10 ^3/uL (1.6-8.6) Lymphocytes # (Auto) 1.5 10 ^3/uL (0.4-5.4) Monocytes # (Auto) 0.6 10 ^3/uL (0-1.3) Eosinophils # (Auto) 0.3 10 ^3/uL (0-0.8) Basophils # (Auto) 0 10 ^3/uL (0-0.2) Nucleated Red Blood Cells 0.3 % Sodium Level 143 mmol/L (136-145) Potassium Level 3.3 mmol/L (3.5-5.1) Chloride Level 110 mmol/L (98-107) Carbon Dioxide Level 23 mmol/L (20-31) Anion Gap 10 (5-15) Blood Urea Nitrogen 12 mg/dL (9-23) Creatinine 0.83 mg/dL (0.550-1.02) Glomerular Filtration Rate Calc 82 mL/min (>90) BUN/Creatinine Ratio 14.5 (10.0-20.0) Serum Glucose 96 mg/dL (74-106) Calcium Level 9.2 mg/dL (8.7-10.4) Magnesium Level 2.0 mg/dL (1.6-2.6) Total Bilirubin 0.5 mg/dL (0.2-1.0) Aspartate Amino Transferase (AST) 34 U/L (13-40) Alanine Aminotransferase (ALT) 37 U/L (7-40) Alkaline Phosphatase 70 U/L (46-116) Total Protein 6.5 g/dL (5.7-8.2) Albumin 4.3 g/dL (3.2-4.8) Stool for White Cells None seen Hemoglobin A1c 5.3 % A1C (<5.7) Lactic Acid Level 1.5 mmol/L (0.4-2.0) Urine Color Yellow (Yellow) Urine Clarity Turbid (Clear) Urine pH 5.5 (5.0-9.0) Urine Specific [place] 1.025 (1.001-1.035) Urine Protein 1+ (Negative) Urine Ketones 1+ (Negative) Urine Blood 1+ /uL (Negative) Urine Nitrite Negative (Negative) Urine Bilirubin Negative (Negative) Urine Urobilinogen Normal mg/dL (Negative) Urine Leukocyte Esterase 2+ /uL (Negative) Urine RBC 11 /hpf (0 - 4) Urine Microscopic WBC 40 /HPF (0-5) Urine Squamous Epithelial Cells Few /hpf (<5) Urine Bacteria Few /hpf (None Seen) Urine Hyaline Casts Many /lpf (0 - 2) Urine Mucus Few (None Seen) Urine Glucose Normal mg/dL (Normal) Urine Opiates Screen Neg (NEGATIVE) Urine Fentanyl Screen Neg (NEGATIVE) Urine Barbiturates Screen Neg (NEGATIVE) Urine Phencyclidine Screen Neg (NEGATIVE) Urine Amphetamines Screen Neg (NEGATIVE) Urine Benzodiazepines Screen Neg (NEGATIVE) Urine Cocaine Screen Neg (NEGATIVE) Urine Cannabinoids Screen Neg (NEGATIVE) Other Laboratory Tests 04/05/25 06:35 Brief Hx & Hospital Course: 55-year-old female with a known history of hypothyroidism, anxiety and depression disorder, morbid obesity class two initially presented to hospital with the abdominal pain nausea and vomiting found to have acute viral gastroenteritis. Patient has had a CT abdomen and pelvis done which shows no acute pathology besides gallbladder sludge but patient is clinically has no evidence of acute cholecystitis. Patient is currently tolerating diet once she tolerated General for regular food then she can be discharged with a close follow up as an outpatient with the PCP and return to ER if there is recurrent abdominal pain nausea and vomiting. Condition at Discharge: Stable Final Diagnosis/Problems List 1. Acute viral gastroenteritis 2. Abdominal pain nausea and vomiting resolved 3. Acute kidney injury suspected secondary to vasomotor nephropathy resolved 4. Anxiety and depression disorder 5. Hypothyroidism 6. Morbid obesity classII, diet weight reduction and exercise counseling Discharge Disposition: Home SNF Discharge Will this Physician continue t: No Discharge Instruct/Medications Diet: Cardiac 2g Na,low cholest Activity: No Restrictions, As Tolerated Follow Up/Referral: Follow up with the PCP in 1-2 weeks Medications: Resume home medications. Scheduled Buspirone HCl (Buspirone HCl), 1 TAB PO BID, (Reported) Cholecalciferol (Vitamin D3), 1 CAP PO DAILY, (Reported) Levothyroxine Sodium (Levothyroxine Sodium), 1 TAB PO QAM, (Reported) Scheduled PRN Cyclobenzaprine HCl (Cyclobenzaprine Hydrochlo), 1 TAB PO BIDPRN PRN, (Reported) Tramadol Hcl (Tramadol Hcl), 1 TAB PO DAILYPRN PRN, (Reported) Discontinued Medications Gabapentin (Neurontin), 1 TAB PO BID Oxycodone W/ Acetaminophen (Percocet 5/325MG), 1 TAB PO Q6HPRN PRN Discharge Statement: "Patient was advised to return to the ER or call 911 if any headaches, dizziness, shortness of breath, chest pain, abdominal pain, bleeding, fevers, or worsening of medical condition. Patient was counseled about treatment plan, medications, possible side effects, patientverbalized understanding. All questions were answered to the best of my ability. This discharge took greater then 30 minutes in planning, reviewing documentation, counseling the patient, and discussing with other team members." ASSESSMENT ASSESSMENT Assessment 1. Acute viral gastroenteritis 2. Abdominal pain nausea and vomiting resolved 3. Acute kidney injury suspected secondary to vasomotor nephropathy resolved 4. Anxiety and depression disorder 5. Hypothyroidism 6. Morbid obesity classII, diet weight reduction and exercise counseling Date of Service: Apr 05, 2025 Billing Provider: SARA CADE MD Common Visit Codes: 65935-XTO/OBS DISCH DAY >30min SARA CADE MD Apr 05, 2025 17:47
== END 2025-04-05 20:00 | disposition home or self-care (01) | DRG 249 ==
LOC: ER 06:49 → OVERFLOW 11:13 → WEST WING 17:17
PROVIDERS: ADMIT Nurse Practitioner Family; ATTEND Nurse Practitioner Family
DX: A08.4 Viral intestinal infection, unspecified (principal); N17.0 Acute kidney failure with tubular necrosis; E03.9 Hypothyroidism, unspecified; F32.A Depression, unspecified; Z68.36 Body mass index [BMI] 36.0-36.9, adult; J45.909 Unspecified asthma, uncomplicated; E66.01 Morbid (severe) obesity due to excess calories; F41.9 Anxiety disorder, unspecified; R73.9 Hyperglycemia, unspecified; N39.0 Urinary tract infection, site not specified; E87.6 Hypokalemia; Z88.0 Allergy status to penicillin; Z87.891 Personal history of nicotine dependence
CPT/HCPCS: 36415; 74176; 80053; 80307; 81001; 83036; 83605; 83735; 84132; 85025; 85048; 87040; 87045; 87086; 87427; 87493; 96365; G0378; J3490